=== PATIENT | male | born 1940 | race Two or more races ===

== ENCOUNTER 2019-01-17 03:49 | Emergency (ER) | payer MEDICARE, MEDICAID ==
[~2019-01-17] VITALS: Ht 167.6 cm; Wt 57.6 kg
--- NOTE | 2019-01-17 04:00 | NUR ---
Pt. BIB EMS for dislodged G-tube, dislodgement occurred at approx. 0210 today, tube put into os to keep patent, abdominal binder in place, pt. is alert but does not respond appropriately to questions, RR even and unlabored, VSS, NAD, bed in low position, monitoring from nurse station,
[2019-01-17] MEDS ORDERED: LINA5TAB PO (04:25)
[2019-01-17] MEDS ORDERED: ALLO100T56 GT (04:25)
[2019-01-17] MEDS ORDERED: SERT25TA GT (04:25)
[2019-01-17] MEDS ORDERED: AMLO5TAB9 GT (04:25)
[2019-01-17] MEDS ORDERED: BISA10SU61 RC (04:25)
[2019-01-17] MEDS ORDERED: LACT10SO GT (04:25)
[2019-01-17] MEDS ORDERED: ACET-2154 GT (04:25)
[2019-01-17] MEDS ORDERED: GLUC1KIT IM (04:25)
[2019-01-17] MEDS ORDERED: CARV6.252 GT (04:25)
[2019-01-17] MEDS ORDERED: DOCU100T2 GT (04:25)
[2019-01-17] MEDS ORDERED: INSU100I4 (04:25)
[2019-01-17] MEDS ORDERED: B CO1TAB6 GT (04:25)
[2019-01-17] MEDS ORDERED: IPRA0.2S48 NEB (04:25)
[2019-01-17] MEDS ORDERED: DONE10TA44 PO (04:25)
[2019-01-17] MEDS ORDERED: INSU100V7 SQ (04:25)
[2019-01-17] MEDS ORDERED: CARB-92 GT (04:25)
--- NOTE | 2019-01-17 04:35 | NUR ---
at bedside for G-tube replacement procedure,
[2019-01-17] MEDS ORDERED: DIATR MEGLU/DIATRIZOATE SODIUM 120 ML BOTTLE PO ONE (04:45)
[2019-01-17] MEDS ORDERED: DIATR MEGLU/DIATRIZOATE SODIUM 30 ML SOLUTION ONE (04:48)
--- NOTE | 2019-01-17 04:49 | NUR ---
Rad. tech. at bedside for abd. xray,
--- NOTE | 2019-01-17 05:09 | NUR ---
Called [facility] for transport back to [facility] spoke w/ [place], ETA [id number] trip #[id number]
--- NOTE | 2019-01-17 05:37 | NUR ---
Patient discharged to home in stable conditon. Written and verbal after care instructions given. pt. unable to sign d/c papers - paperwork cosigned, ID band removed, all belongings w/ pt., pt. taken off unit via [facility] to transport back to [facility] NAD
--- NOTE | 2019-01-17 05:37 | NUR ---
Gave report to Zenobia at [facility],
== END 2019-01-17 05:39 | disposition home or self-care (01) ==
LOC: ER 03:53
DX: K94.23 Gastrostomy malfunction (principal); I50.9 Heart failure, unspecified; J45.909 Unspecified asthma, uncomplicated; E11.9 Type 2 diabetes mellitus without complications; N18.9 Chronic kidney disease, unspecified; Z79.4 Long term (current) use of insulin; Z79.899 Other long term (current) drug therapy
CPT/HCPCS: 43762; 74018; 99284; Q9963; A4663